=== PATIENT | male | born 1980 | race Caucasian/White ===

== ENCOUNTER 2025-10-01 16:04 | Outpatient (AMB) | payer OTHER, SELFPAY ==
--- NOTE | 2025-10-01 16:07 | A.OFFPC_ITS ---
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 up Sales And Service Officer Required: No Accompanied by: Self / Same As Patient Allergies No Known Allergies Allergy (Verified 10/01/25 16:10) Medication List - Last Reconciled 10/01/25 by Remi Disla MD No Known Home Meds Tobacco use date assessed: 10/01/25 Dental Screening Dental Screen Date: 10/01/25 Did you have a dental visit in the last 12 months?: No Did you have a dental problem in the last 6 months where you did not have access to dental care?: No Was dental information given to patient?: No HPI HPI Comments History of Present Illness Details History of Present Illness The patient is a 44 year old individual presenting with chest pain. Positional chest pain: The patient has been experiencing chest pain for a couple of months, which occurs when rising after bending over. The pain is not present with palpation and has not been treated with any medication. Morbid Obesity: The patient is categorized as having morbid obesity with a BMI of 40 or above. The patient currently does not exercise. Obstructive sleep apnea: The patient was diagnosed with sleep apnea and has been using a CPAP machine every night for 6 hours for the past 3 years. The CPAP settings have not been evaluated in two years. History of Hypercholesterolemia: The patient has a history of high cholesterol and previously took medication, which was stopped after cholesterol levels returned to normal. Surgical History: - No history of surgeries. Medications: - The patient is not currently taking an y medications. - The patient previously took medication for high cholesterol but discontinued it after levels normalized. 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 - Substance use: The patient denies smok ing or using illicit drugs. - Exercise: The patient reports not exer cising. Family History: - The patient reports that an older brot her was recently diagnosed with a thyroid problem. Past Medical History - Hypercholesterolemia, previously treat ed with medication. - Obstructive sleep apnea for three year s, managed with a CPAP machine. - No other known medical history. - No prior hospitalizations. - Last saw a doctor and had blood work p erformed approximately seven years ago. Health Maintenance - As the patient has not had a health ev aluation in seven years, comprehensive screening labs have been ordered. - An influenza vaccine was offered. - The patient was provided instructions for completing lab work. [facility] Medical History (Updated 10/01/25 @ 16:33 by Remi Disla MD) Dyslipidemia Costochondral chest pain Morbid obesity due to excess calories Sleep apnea Social History (Updated 10/01/25 @ 16:13 by Bayron Kilgore CMA) Housing: Apartment Housing Other:: Rents a room Alcohol intake: current Comment: ocasionally Patient Tobacco Use Status: Former Tobacco user Years Smoked: 15 years e-Cigarette/Vaping Use: Never Used Second Hand Smoke Exposure: No Use of substances other than those prescribed or required for medical reasons: No service: No Current occupational status: employed 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 1. Little interest or pleasure in doing things: not at all 2. Feeling down, depressed, or hopeless: not at all 3. Trouble falling or staying asleep, or sleeping too much: not at all 4. Feeling tired or having little energy: more than half the days 5. Poor appetite or overeating: not at all 6. Feeling bad about yourself - or that you are a failure or have let yourself or your family down: not at all 7. Trouble concentrating on things, such as reading the newspaper or watching television: not at all 8. Moving or speaking so slowly that other people could have noticed. Or the opposite - being so fidgety or restless that you have been moving around a lot more than usual: not at all 9. Thoughts that you would be better off or of hurting yourself in some way: not at all Total score: 2 Depression Screening Interpretation: Negative Depression Screening Done: Yes Source: Developed by Drs. Reese Guidry, Ivory Cole, George Whitehead and colleagues, with an educational alvino from [employer]. Thrive Questionnaire I am a: Patient What is your living situation today?: I choose not to answer this question Within the past 12 months, did the food you bought not last and you didn't have the money to get more?: Never true Within the past 12 months, did you worry whether your food would run out before you got money to buy more?: Never true Do you have trouble paying for medicines?: No Do you have trouble getting transportation to medical appointments?: No Do you have trouble paying your heating and electricity bill?: No Do you have trouble taking care of your child, family member or friend?: No Are you currently unemployed and looking for a job?: No Are you interested in more education?: No Please select the resources that you would like help with: None Currently or been in a relationship where the following occur: I choose not to answer THRIVE Score: 0 AUDIT C Alcohol Use Questionnaire (AUDIT-C) 1. How often do you have a drink containing alcohol?: 2-3 times a week 2. How many drinks containing alcohol do you have on a typical day when you are drinking?: 3 or 4 3. How often do you have six or more drinks on one occasion?: Weekly Total Score: 7 AMISH-7 AMB Questionnaire AMISH-7 Feeling nervous, anxious, or on edge: 0 = Not at all Not being able to stop or control worryin = Not at all Worrying too much about different things: 0 = Not at all Trouble relaxin = Not at all Being so restless that it is hard to sit still: 0 = Not at all Becoming easily annoyed or irritable: 0 = Not at all Feeling afraid as if something awful might happen: 0 = Not at all Total AMISH-7 score (0-4 normal; 5-9 mild; 10-14 moderate; 15-21 severe): 0 Source: Developed by Drs. Reese Guidry, Ivory Cole, George Whitehead and colleagues, with an educational alvino from [employer]. Review of Systems Narrative Review of Systems - Cardiovascular: Reports intermittent, positional chest pain for a couple of months. - Gastrointestinal: Reports normal bowel function. - Genitourinary: Reports normal urinary function. - Respiratory: Reports sleep apnea. - General: Patient believes being overweight contributes to symptoms. 10-point ROS reviewed and negative except as noted in HPI Physical exam (Primary Care) Vital Signs: Last Vital Signs Temp 98.3 F 10/01/25 16:14 Pulse 92 10/01/25 16:14 Resp 20 10/01/25 16:14 BP 110/78 10/01/25 16:14 Pulse Ox 97 10/01/25 16:14 Oxygen Delivery Method Room Air 10/01/25 16:14 BMI result Body Mass Index 41.3 Tobacco/Smoking Status: Tobacco use Status Tobacco use date assessed 10/01/25 10/01/25 16:14 Patient Tobacco Use Status Former Tobacco user 10/01/25 16:14 e-Cigarette/Vaping Use Never Used 10/01/25 16:14 PHQ-9: PHQ-9 Score PHQ-9: Total score 2 10/01/25 16:14 Depression Screening Interpretation: Negative Currently or been in a relationship where the following occur: I choose not to answer Narrative Physical Exam General: Well-appearing, in no acute distress. Vital signs: Within normal limits. Blood pressure and pulse are good. HEENT: Normocephalic, atraumatic. PERRLA, EOMI. Conjunctiva clear, sclera anicteric. Oropharynx clear, mucous membranes moist. TMs intact bilaterally. Noted redness, possibly from rubbing or pressure. Neck: Supple, no lymphadenopathy, no thyromegaly, no JVD or carotid bruits. Cardiovascular: RRR, normal S1/S2, no murmurs, rubs, or gallops. Peripheral pulses 2+ and symmetric. No edema. Heart sounds good. Respiratory: Lungs clear to auscultation bilaterally, no wheezes, rales, or rhonchi. Normal effort. Abdomen: Soft, non-tender, non-distended. Normoactive bowel sounds. No hepatosplenomegaly, no masses. MSK: Full range of motion, no joint swelling or deformity. Normal gait. Pain noted upon bending and stretching, suggestive of musculoskeletal origin, possibly costochondritis. Skin: Warm, dry, intact. No rashes, lesions, or pallor. Noted redness, possibly from rubbing or pressure. Neuro: Alert and oriented x3. Cranial nerves II-XII intact. Strength 5/5 throughout. Sensation intact. Reflexes 2+ symmetric. Normal coordination and gait. Psych: Appropriate mood and affect. Normal judgment and insight. Coding Level of Care Code New Pt Level 4 (09232) Diagnoses Sleep apnea G47.30 Morbid obesity due to excess calories E66.01 Costochondral chest pain R07.89 Dyslipidemia E78.5 Assessment & Plan Assessment & Plan (1) Sleep apnea: Code(s): G47.30 - Sleep apnea, unspecified Category: Medical (2) Morbid obesity due to excess calories: Code(s): E66.01 - Morbid (severe) obesity due to excess calories Category: Medical (3) Costochondral chest pain: Code(s): R07.89 - Other chest pain Category: Medical (4) Dyslipidemia: Code(s): E78.5 - Hyperlipidemia, unspecified Category: Medical Plan Consent The patient was informed of the plan to order comprehensive blood work, place a referral to sleep medicine, and prescribe ibuprofen. The patient verbally agreed to the proposed plan. Patient was informed and verbally consented to the use of an ambient scribe for clinic note documentation during this visit. Plan 1. Positional Chest Pain - The patient's chest pain, which is positional and reproducible with movement, is assessed to be musculoskeletal in origin, likely costochondritis. - Coronary artery disease is considered less likely at this time. - Recommended ibuprofen 600 mg for pain. - Advised the patient to go to the emergency room if the chest pain is accompanied by shortness of breath or dizziness. 2. Morbid Obesity - The patient's BMI is in the morbid obesity range (40 or above), which increases future cardiovascular risk. - A comprehensive lab evaluation, including lipids and hemoglobin A1c, has been ordered to assess for related metabolic conditions. - A referral to a welder fabricator will be considered to work on weight loss after reviewing lab results. 3. Obstructive Sleep Apnea - The patient uses a CPAP but has not had the settings checked in two years. - A referral will be placed for the patient to see a sleep medicine specialist to evaluate and adjust CPAP settings as needed. Discussion Notes I explained to the patient that the chest pain is likely musculoskeletal in nature, such as costochondritis, because it is related to movement and position, and that a cardiac cause is less likely at this time. I recommended ibuprofen for pain and provided strict instructions to seek emergency care for any wo rsening symptoms like shortness of breath or dizziness. I discussed the patient's weight, classifying it as morbid obesity based on the body mass index, and explained that this is a significant risk factor for future cardiovascular disease. I outlined the plan to order a comprehensive set of labs to get a full picture of the patient's overall health before addressing weight management, which may include a referral to a welder fabricator. We also discussed the history of sleep apnea, and I am placing a referral to sleep medicine to have the patient's CPAP settings evaluated, as this has not been done in two years. The patient understood the plan and agreed to proceed with the lab work and referrals. Patient Instructions - Take ibuprofen 600 mg for your chest pain as needed. - Go to the nearest emergency room if you experience chest pain along with shortness of breath, dizziness, or pain that travels down your arm. - Please go to the lab to have your blood and urine tests done. - You will receive a call from the sleep medicine department to schedule an appointment to check your CPAP machine settings. - You will receive a flu vaccine today before you leave. - We will discuss your test results at a follow-up visit and talk more about ways to improve your health, such as exercise. Medical Decision Making The patient is a 44-year-old individual presenting for evaluation of chest pain after not having seen a physician for seven years. My primary assessment of the chest pain is that it is musculoskeletal, likely costochondritis, given that it is positional and reproducible with specific movements, such as rising after bending. The patient's vital signs were stable, and a cardiac etiology seems less likely at this juncture, although it cannot be completely excluded without further workup. Management for the pain will be symptomatic with NSAIDs, and clear return precautions were provided. Given the long interval since the last health evaluation, and the patient's classification of morbid obesity (BMI >40), a comprehensive diagnostic workup is warranted to establish a baseline and screen for comorbidities. I have ordered a CBC, CMP, urinalysis, lipid panel, HbA1c, thyroid studies, and infectious disease screening to assess the patient's overall metabolic, endocrine, and hematologic status. Additionally, the patient has a known history of obstructive sleep apnea and has not had CPAP settings evaluated in two years, necessitating a referral to sleep medicine for optimization of therapy. The overall plan is to address the acute musculoskeletal pain, establish a comprehensive health baseline, and initiate long-term management strategies for chronic conditions like obesity and sleep apnea, with further subspecialty referrals as indicated by lab results. Total Time Statement 30 min Total time spent caring for the patient today includes pre-visit chart review, documentation, review of laboratory and diagnostic imaging results, medication reconciliation, medically necessary evaluation, counseling on diagnoses, care coordination, ordering appropriate tests and medications, review of tests performed by other providers, reporting test results to the patient, and communication with other healthcare providers. Orders: Orders Complete Blood Count Auto Diff Today Z13.9 - Encounter for screening, unspecified Hepatitis B Surface Antigen Today Z13.9 - Encounter for screening, unspecified Syphilis Screen Today Z13.9 - Encounter for screening, unspecified Comprehensive Met. Panel Today Z13.9 - Encounter for screening, unspecified Hepatitis C Antibody Today Z13.9 - Encounter for screening, unspecified HIV Ab/Ag Today Z13.9 - Encounter for screening, unspecified UA CC w/rflx Micro + Cult Today Z13.9 - Encounter for screening, unspecified Lipid Panel Today Z13.9 - Encounter for screening, unspecified Vitamin B12 and Folate Today Z13.9 - Encounter for screening, unspecified Hepatitis B Surface Antibody Today Z13.9 - Encounter for screening, unspecified Influenza [id number] Immunization Today Z13.9 - Encounter for screening, unspecified, Z23 - Encounter for immunization TSH reflex Free T4 Today Z13.9 - Encounter for screening, unspecified Hemoglobin A1c Today Z13.9 - Encounter for screening, unspecified Magnesium Today Z13.9 - Encounter for screening, unspecified Vitamin D 1,25 dihydroxy Today Z13.9 - Encounter for screening, unspecified Referrals Sleep Medicine Referral G47.30 - Sleep apnea, unspecified Medications: New Fluarix [id number] (PF) (flu vac ts 2024-(6mos up)-PF) 0.5 mL IM ONCE 0.5 mL 0RF NS Z13.9 - Encounter for screening, unspecified, Z23 - Encounter for immunization
[2025-10-01 16:14] VITALS: BP 110/78; PULSE 92; RESP 20; TEMP 36.8; O2SAT 97; BMI 41.3
--- OUTSIDE RECORDS SUMMARY | 2025-10-01 19:26 | XMS_ITS | Encounter Summary ---
Author Organization [facility] Address [address] [place] [phone] Phone Care Team Providers Care Survey Research Center Director Name Role Phone Pcp, Unknown Primary Care Provider Unavailabl e Encounter Details Date Type Department Care Team (Late st Contact Info) Description 11/12/2024 Procedure Pass [facility], Ct Scan - [facility] [address] [place] [address] Social History Tobacco Use Types Packs/Day Years Used Date Smoking Tobacco: Former Cigarettes Q uit: 2015 Smokeless Tobacco: Never Alcohol Use Standard Drinks/Week Comments Yes 0 (1 standard drink = 0.6 oz pur e alcohol) socially Education Answer Date Recorded Are you interested in more education? Not on alvaro e 11/12/2024 Are you concerned about learning? Not on file 11/12/2024 No 11/12/2024 No 11/12/2024 Digital Access Answer Date Recorded No 11/12/2024 No 11/12/2024 Reliable internet access at home? Not on file 11/12/2024 Device with a working camera? Not on file Intimate Partner Violence Answer Date R ecorded Are you denied basic needs s uch as food, clothing, or medical care? No 11/12/2024 In the past 12 months have y ou been in a relationship with a person who hurts, threatens, or tries to control you? No 11/12/2024 Are you denied basic needs s uch as food, clothing, or medical care? No 11/12/2024 In the past 12 months have y ou been in a relationship with a person who hurts, threatens, or tries to control you? No 11/12/2024 Sex and Gender Information Value Date Recorded Sex Assigned at Male 11/12/2024 1:58 PM EST Legal Sex Male 12:19 PM EST Gender Identity Male 11/12/2024 1:58 PM EST Sexual Orientation Don't know 11/12/2024 1: 58 PM EST documented as of this encounter Functional Status * Calculated C-SSRS Risk Score (Lifetime/Recent) Answer Date of Assessment Author No Risk Indicated 11/12/2024 12:47 PM Sujata Pathak, TATY * [place] Suicide Severity Rating Scale (Screener/Recent Self-Report) Question Answer Date of Assessment Author 1. Wish to be (Past 1 Month) No 025 12:47 PM Sujata Allred RN 2. Non-Specific Active Suici em Thoughts (Past 1 Month) No 11/12/2024 12:47 PM Lisette Allred RN 6. Suicidal Behavior (Lifetime) No 12:47 PM Sujata Allred, TATY documented as of this encounter Plan of Treatment Not on file documented as of this encounter Visit Diagnoses Not on filedocumented in this encounter Care Teams Survey Research Center Director Relationship Specialty Start Date End Date Pcp, Unknown PCP - General 11/12/24 documented as of this encounter Additional Source Comments The information contained in this document represents components of the legal health record. It is not the complete legal health record.[facility]
--- OUTSIDE RECORDS SUMMARY | 2025-10-01 19:26 | XMS_ITS | Encounter Summary ---
Author Organization [facility] Address [address] [facility] [address] [place] [phone] Phone Care Team Providers Care Emergency Vehicle Operations Instructor Name Role Phone Pcp, Unknown Primary Care Provider Unavailabl e Encounter Details Date Type Department Care Team (Late st Contact Info) Description 11/12/[address] [facility], Ct Scan - [facility] [address] [place] [address] Social History Tobacco Use Types Packs/Day Years [...] 11/12/2024 12:47 PM Sujata Pathak, TATY * [place] Suicide Severity Rating Scale (Screener/Recent Self-Report) Question [...] on filedocumented in this encounter Care Teams Emergency Vehicle Operations Instructor Relationship Specialty Start Date End Date Pcp, Unknown PCP - General 11/12/24 documented as of this encounter Additional Source Comments The information contained in this document represents components of the legal health record. It is not the complete legal health record.[facility]
--- OUTSIDE RECORDS SUMMARY | 2025-10-01 19:26 | XMS_ITS | Clinical Summary ---
Author Organization [facility] Address [address] [place] [phone] Phone Care Team Providers Care Activity Coordinator Name Role Phone Pcp, Unknown Primary Care Provider Unavailabl e Allergies No known active allergies Medications No known medications Active Problems Problem Noted Date Diagnosed Date No pertinent past medical history 11/12/2024 Social History Tobacco Use Types Packs/Day Years Used Date Smoking Tobacco: Former Cigarettes Q uit: 2015 Smokeless Tobacco: Never Tobacco Cessation:Counseling Given: Not Answered Alcohol Use Standard Drinks/Week Comments Yes 0 [...] Don't know 11/12/2024 1: 58 PM EST Last Filed Vital Signs Vital Sign Reading Time Taken Comments Blood Pressure 122/85 11/12/2024 12:36 PM EST Pulse 100 11/12/2024 12:36 PM EST Temperature 36.5 C (97.7 F) 11/12/2024 12:36 PM EST Respiratory Rate 18 11/12/2024 12:36 PM EST Oxygen Saturation 98% 11/12/2024 12:36 PM EST Inhaled Oxygen Concentration - - Weight 108.9 kg (240 lb) 11/12/2024 12:36 PM EST Height 165.1 cm (5' 5 ) 11/12/2024 12:36 PM EST Body Mass Index 39.94 11/12/2024 12:36 PM EST Plan of Treatment Health Maintenance Due Date Last Done Comments Adult Td,Tdap Booster 1981 LIPID PANEL 1981 DEPRESSION SCREENING 1993 SMOKING Hx and SMOKELESS TOB ACCO SCREENING 1994 HEPATITIS C SCREENING 1999 HIV ONE-TIME SCREENING (18-6 5 YEARS) 1999 INFLUENZA VACCINE (#1) 2025 COVID-19 VACCINE (2024-2 6 season) 2025 SCREENING FOR DIABETES 11/12/2027 11/12/2024 HEPATITIS A VACCINES Aged Out No long er eligible based on patient's age to complete this topic HIB VACCINES Aged Out No longer eligi ble based on patient's age to complete this topic MENINGOCOCCAL VACCINES (ACWY) Aged Out No longer eligible based on patient's age to complete this topic MENINGOCOCCAL VACCINES (B) Aged Out N o longer eligible based on patient's age to complete this topic PNEUMOCOCCAL VACCINES (0-49 years) Aged Out No longer eligible based on patient's age to complete this topic Medical Devices Not on file Insurance WORKERS COMPENSATION Care Teams Activity Coordinator Relationship Specialty Start Date End Date Pcp, Unknown PCP - General 11/12/24 Additional Source Comments The information contained in this document represents components of the legal health record. It is not the complete legal health record.[facility]
== END 2025-10-01 16:35 | disposition home or self-care (01) ==
LOC: HO.HMCFMS 16:05
PROVIDERS: PCP Student in an Organized Health Care Education/Training Program; Visit Provider Student in an Organized Health Care Education/Training Program
DX: G47.30 Sleep apnea, unspecified (principal); E66.01 Morbid (severe) obesity due to excess calories; R07.89 Other chest pain; E78.5 Hyperlipidemia, unspecified; Z23 Encounter for immunization; Z13.9 Encounter for screening, unspecified

== ENCOUNTER → 2025-10-01 16:04 | Outpatient (BNVA) | payer OTHER, SELFPAY | PROVIDERS: Visit Provider Student in an Organized Health Care Education/Training Program | DX: R07.89 Other chest pain (principal); Z23 Encounter for immunization; G47.30 Sleep apnea, unspecified; E66.01 Morbid (severe) obesity due to excess calories; Z68.41 Body mass index [BMI] 40.0-44.9, adult; Z13.31 Encounter for screening for depression | CPT/HCPCS: 90471; 90656; 96127 ==

== ENCOUNTER 2025-10-02 10:10 | Outpatient (REF) | payer OTHER, SELFPAY ==
--- OUTSIDE RECORDS SUMMARY | 2025-10-02 11:57 | XMS_ITS | Clinical Summary ---
Author Organization [facility] Address [address] [facility] [address] [place] [phone] Phone Care Team Providers Care Bi Specialist Name Role Phone Pcp, Unknown Primary Care [...] on file Insurance WORKERS COMPENSATION Care Teams Bi Specialist Relationship Specialty Start Date End Date Pcp, Unknown PCP - General 11/12/24 Additional Source Comments The information contained in this document represents components of the legal health record. It is not the complete legal health record.[facility]
--- OUTSIDE RECORDS SUMMARY | 2025-10-02 11:57 | XMS_ITS | Encounter Summary ---
Author Organization [facility] Address [address] [facility] [address] [place] [phone] Phone Care Team Providers Care Electrician Master Name Role Phone Pcp, Unknown Primary Care Provider Unavailabl e Encounter Details Date Type Department Care Team (Late st Contact Info) Description 11/12/2024 Procedure Pass [facility], Ct Scan - [facility] [address] [place] [address] Social History Tobacco Use Types Packs/Day Years [...] 11/12/2024 12:47 PM Sujata Pathak, TATY * [place] Suicide Severity Rating Scale (Screener/Recent Self-Report) Question [...] on filedocumented in this encounter Care Teams Electrician Master Relationship Specialty Start Date End Date Pcp, Unknown PCP - General 11/12/24 documented as of this encounter Additional Source Comments The information contained in this document represents components of the legal health record. It is not the complete legal health record.[facility]
--- OUTSIDE RECORDS SUMMARY | 2025-10-02 11:57 | XMS_ITS | Encounter Summary ---
Author Organization [facility] Address [address] [facility] [address] [place] [phone] Phone Care Team Providers Care Networks Software Consultant Name Role Phone Pcp, Unknown Primary Care Provider Unavailabl e Encounter Details Date Type Department Care Team (Late st Contact Info) Description 11/12/2024 Procedure Pass [facility], Ct Scan - [facility] [address] [place] [address] Social History Tobacco Use Types Packs/Day Years [...] 11/12/2024 12:47 PM Sujata Pathak, TATY * [place] Suicide Severity Rating Scale (Screener/Recent Self-Report) Question [...] on filedocumented in this encounter Care Teams Networks Software Consultant Relationship Specialty Start Date End Date Pcp, Unknown PCP - General 11/12/24 documented as of this encounter Additional Source Comments The information contained in this document represents components of the legal health record. It is not the complete legal health record.[facility]
[2025-10-02 13:23] LABS: MANUAL DIFF FLAG NO
[2025-10-02 13:34] LABS: Hematocrit 42.1 % (42.0-52.0); Hemoglobin 13.6 g/dl (14.0-18.0); Imm Gran Abs Auto 0.02 X10*3/uL (0.00-0.03); Imm Gran Pct Auto 0.4 % (0.0-0.4); Lymphocytes Absolute Auto 1.1 X10*3/uL (1.2-4.9); Mean Corpuscular HGB Conc 32.3 g/dl (31.0-36.0); Mean Corpuscular Hemoglobin 26.7 pg (27.0-33.0); Mean Corpuscular Volume 82.5 fL (80.0-98.0); NRBC Abs Auto 0.000 X10*3/uL (0.0-0.012); NRBC Pct Auto 0.0 /100WBC (0.0-0.2); Platelet Count 372 X10*3/uL (160-400); Red Blood Count 5.10 X10*6/uL (4.60-5.80); White Blood Count 5.5 X10*3/uL (4.8-10.8)
[2025-10-02 14:01] LABS: Appearance Urine Clear; Glucose Urine UA Negative (Negative); PH 7.5 (5.0-9.0); Specific Gravity - Urine 1.025 (1.005-1.025); UMIC TRIGGER UACC YES
[2025-10-02 15:12] LABS: Alanine Aminotransferase 38 U/L (0-40); Albumin Level 4.6 g/dL (3.5-5.0); Alkaline Phosphatase 104 U/L (39-117); Anion Gap 12 (12-20); Aspartate Amino Transferase 41 U/L (5-37); Blood Urea Nitrogen 17 mg/dL (9-16); Calcium 9.9 mg/dL (8.4-10.2); Carbon Dioxide 29 mmol/L (22-29); Chloride 104 mmol/L (96-108); Cholesterol 217 mg/dL (<200); Estimated Glomerular Filt Rate > 60; HDL Cholesterol 46 mg/dL (>40); Magnesium 2.2 mg/dL (1.6-2.6); Potassium 4.2 mmol/L (3.3-5.1); Sodium 141 mmol/L (135-145); Total Protein 7.8 g/dL (6.5-8.0); Triglycerides 277 mg/dL (<150)
[2025-10-02 19:02] LABS: Folate 15.8 ng/mL (> or = 4.0); Vitamin B12 238 pg/mL (200-900)
[2025-10-03 04:44] LABS: Syphilis Screen Nonreactive (Nonreactive)
[2025-10-03 05:38] LABS: HBS Num1 > 1000.00 mIU/mL (0-7.99); HBsAGNum1 0.31 S/CO (0.00-0.99); HIV Num 1 0.06 S/CO (0.00-0.99); Hepatitis B Surface Antigen Negative (Negative); ~HepC Num1 0.15 S/CO (0.00-0.79); ~Hepatitis B Surface Antibody REACTIVE (Nonreactive); ~Hepatitis C Antibody Nonreactive (Nonreactive)
[2025-10-07 14:54] LABS: VITAMIN D (1,25 OH) D3 23 pg/mL; Vit D (1,25-Dihydroxy) Total 23 pg/mL (18-72); Vitamin D (1,25 OH) D2 <8 pg/mL
== END 2025-10-02 10:11 | disposition home or self-care (01) ==
LOC: HO.HKASLDS 10:10
PROVIDERS: PCP Student in an Organized Health Care Education/Training Program; Visit Provider Student in an Organized Health Care Education/Training Program
DX: Z11.4 Encounter for screening for human immunodeficiency virus [HIV] (principal); Z13.6 Encounter for screening for cardiovascular disorders; Z13.1 Encounter for screening for diabetes mellitus; Z13.29 Encounter for screening for other suspected endocrine disorder; Z13.89 Encounter for screening for other disorder
CPT/HCPCS: 36415; 80053; 80061; 81001; 81003; 82607; 82652; 82746; 83036; 83735; 84443; 85025; 86706; 86780; 86803; 87340; 87389

== ENCOUNTER 2025-10-17 15:53 | Outpatient (AMB) | payer OTHER, SELFPAY ==
[2025-10-17 15:59] VITALS: BP 137/78; PULSE 67; RESP 16; TEMP 36.7; O2SAT 97; BMI 41.4
--- NOTE | 2025-10-17 15:59 | A.OFFPC_ITS ---
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[employer] Developer Required: No Accompanied by: Self / Same As Patient Allergies No Known Allergies Allergy (Verified 10/17/25 16:00) Medication List - Last Reconciled 10/18/25 by Remi Disla MD cyanocobalamin (vitamin B-12) 1,000 mcg PO DAILY Tobacco use date assessed: 10/17/25 Dental Screening Dental Screen Date: 10/17/25 Did you have a dental visit in the last 12 months?: No Did you have a dental problem in the last 6 months where you did not have access to dental care?: No Was dental information given to patient?: No HPI HPI Comments History of Present Illness Details History of Present Illness The patient is a 44 year old male presenting for a review of his lab results. Prediabetes: The patient's hemoglobin A1c is 5.8%, placing him in the prediabetic range of 5.7% to 6.4%. His random glucose was 86 mg/dL. His diet is high in carbohydrates, including pastas, rices, breads, cookies, powdered juice, and he consumes bread daily with breakfast. Hyperlipidemia: The patient's lab results were from a non-fasting sample. His triglycerides are elevated at 277 mg/dL (target <150 mg/dL), and total cholesterol is 217 mg/dL (target <200 mg/dL). The patient's LDL cholesterol is 116 mg/dL (target <100 mg/dL) and his HDL cholesterol is 46 mg/dL (target >40 mg/dL). He reports drinking a lot of juice. Vitamin B12 Deficiency: The patient's vitamin B12 level is 238 pg/mL, which is at the low end of the normal range of 200-900 pg/mL. He reports experiencing fatigue, particularly around 2:00-3:00 PM after getting home from work, which he attributes to waking up early. He denies symptoms of anemia such as dizziness or heart racing on standing. Sleep evaluation: The patient has a scheduled appointment for a sleep study on the . Social History: - Nutrition: The patient reports a diet high in carbohydrates such as pastas, rices, and breads. - He consumes bread every morning for br eakfast and drinks a lot of powdered juice. - Exercise: He does not currently have a regular exercise routine. - Substance Use: He denies alcohol consu mption. Diagnostic Results: - CBC: White blood cells and red blood c ells are normal. - Hemoglobin: 13.6 g/dL (normal >14 g/dL ). - Electrolytes: Sodium, potassium, and c hloride are normal. - Renal function: Normal. - Random Glucose: 86 mg/dL. - Hemoglobin A1c: 5.8%. - Liver function tests: Normal. - Lipid Panel (non-fasting): Total benjamin sterol 217 mg/dL, Triglycerides 277 mg/dL, LDL 116 mg/dL, HDL 46 mg/dL. - Vitamin B12: 238 pg/mL. - Folate: Normal. - Thyroid function tests: Normal. - Urinalysis: Normal. - Infectious Disease Screen: Negative fo r syphilis, hepatitis C, and HIV. - Hepatitis B Surface Antibody: Reactive , consistent with prior vaccination. Past Medical History - History of hepatitis B vaccination. Health Maintenance - Recommended dietary changes to manage prediabetes and hyperlipidemia, including reducing intake of carbohydrates like pasta, rice, bread, and sugary drinks. - A referral will be placed for a sergio luis dietitian to provide dietary counseling. - Advised to begin moderate-intensity ex ercise, such as walking, for 30 minutes a day, aiming for 150 minutes per week. - Recommended to repeat labs in [facility] to monitor hemoglobin. - Received screening for syphilis, hepat itis B, hepatitis C, and HIV, with all results negative. - Patient has a scheduled appointment fo r a sleep study. 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 1. Little interest or pleasure in doing things: not at all 2. Feeling down, depressed, or hopeless: not at all 3. Trouble falling or staying asleep, or sleeping too much: not at all 4. Feeling tired or having little energy: more than half the days 5. Poor appetite or overeating: not at all 6. Feeling bad about yourself - or that you are a failure or have let yourself or your family down: not at all 7. Trouble concentrating on things, such as reading the newspaper or watching television: not at all 8. Moving or speaking so slowly that other people could have noticed. Or the opposite - being so fidgety or restless that you have been moving around a lot more than usual: not at all 9. Thoughts that you would be better off or of hurting yourself in some way: not at all Total score: 2 Depression Screening Interpretation: Negative Depression Screening Done: Yes Source: Developed by Drs. Reese Guidry, Ivory Cole, George Whitehead and colleagues, with an educational alvino from [employer]. Thrive Questionnaire Date Thrive assessed: 10/17/25 I am a: Patient What is your living situation today?: I choose not to answer this question Within the past 12 months, did the food you bought not last and you didn't have the money to get more?: Never true Within the past 12 months, did you worry whether your food would run out before you got money to buy more?: Never true Do you have trouble paying for medicines?: No Do you have trouble getting transportation to medical appointments?: No Do you have trouble paying your heating and electricity bill?: No Do you have trouble taking care of your child, family member or friend?: No Do you have trouble with day-to-day activities such as bathing, preparing meals, shopping, managing finances, etc.?: No Are you currently unemployed and looking for a job?: No Are you interested in more education?: No Please select the resources that you would like help with: None Currently or been in a relationship where the following occur: I choose not to answer THRIVE Score: 0 AUDIT C Alcohol Use Questionnaire (AUDIT-C) 1. How often do you have a drink containing alcohol?: 2-3 times a week 2. How many drinks containing alcohol do you have on a typical day when you are drinking?: 3 or 4 3. How often do you have six or more drinks on one occasion?: Weekly Total Score: 7 AMISH-7 AMB Questionnaire AMISH-7 Date AMISH - 7 assessed: 10/17/25 Feeling nervous, anxious, or on edge: 0 = Not at all Not being able to stop or control worryin = Not at all Worrying too much about different things: 0 = Not at all Trouble relaxin = Not at all Being so restless that it is hard to sit still: 0 = Not at all Becoming easily annoyed or irritable: 0 = Not at all Feeling afraid as if something awful might happen: 0 = Not at all Total AMISH-7 score (0-4 normal; 5-9 mild; 10-14 moderate; 15-21 severe): 0 Source: Developed by Drs. Reese Guidry, Ivory Cole, George Whitehead and colleagues, with an educational alvino from [employer]. Review of Systems Narrative Review of Systems - General: Reports fatigue, especially mid-afternoon. - Cardiovascular: Denies heart racing or palpitations. - Neurological: Denies dizziness. - Constitutional: Denies symptoms of anemia. 10-point ROS reviewed and negative except as noted in HPI Physical exam (Primary Care) Vital Signs: Last Vital Signs Temp 98.1 F 10/17/25 15:59 Pulse 67 10/17/25 15:59 Resp 16 10/17/25 15:59 BP 137/78 10/17/25 15:59 Pulse Ox 97 10/17/25 15:59 Oxygen Delivery Method Room Air 10/17/25 15:59 BMI result Body Mass Index 41.4 Tobacco/Smoking Status: Tobacco use Status Tobacco use date assessed 10/17/25 10/17/25 16:01 Patient Tobacco Use Status Former Tobacco user 10/17/25 16:01 e-Cigarette/Vaping Use Never Used 10/17/25 16:01 PHQ-9: PHQ-9 Score PHQ-9: Total score 2 10/18/25 10:26 Depression Screening Interpretation: Negative Thrive Assessment: Date of Thrive Assessment Date Thrive assessed 10/17/25 10/17/25 16:01 Currently or been in a relationship where the following occur: I choose not to answer Narrative Physical Exam General: Well-appearing, in no acute distress. Vital signs: Within normal limits. HEENT: Normocephalic, atraumatic. PERRLA, EOMI. Conjunctiva clear, sclera anicteric. Oropharynx clear, mucous membranes moist. TMs intact bilaterally. Neck: Supple, no lymphadenopathy, no thyromegaly, no JVD or carotid bruits. Cardiovascular: RRR, normal S1/S2, no murmurs, rubs, or gallops. Peripheral pulses 2+ and symmetric. No edema. Respiratory: Lungs clear to auscultation bilaterally, no wheezes, rales, or rh onchi. Normal effort. Abdomen: Soft, non-tender, non-distended. Normoactive bowel sounds. No hepatosplenomegaly, no masses. MSK: Full range of motion, no joint swelling or deformity. Normal gait. Skin: Warm, dry, intact. No rashes, lesions, or pallor. Neuro: Alert and oriented x3. Cranial nerves II-XII intact. Strength 5/5 throughout. Sensation intact. Reflexes 2+ symmetric. Normal coordination and gait. Psych: Appropriate mood and affect. Normal judgment and insight. Coding Level of Care Code Est Pt Level 3 (14067) Add On Problem Visit Only Diagnoses Prediabetes R73.03 Dyslipidemia E78.5 Low vitamin B12 level R79.89 Sleep apnea G47.30 Assessment & Plan Assessment & Plan (1) Prediabetes: Code(s): R73.03 - Prediabetes Category: Medical (2) Dyslipidemia: Code(s): E78.5 - Hyperlipidemia, unspecified Category: Medical (3) Low vitamin B12 level: Code(s): R79.89 - Other specified abnormal findings of blood chemistry Category: Medical (4) Sleep apnea: Code(s): G47.30 - Sleep apnea, unspecified Category: Medical Plan Consent Patient was informed and verbally consented to the use of an ambient scribe for clinic note documentation during this visit. Plan 1. Prediabetes - Patient's hemoglobin A1c of 5.8% falls within the prediabetic range, which correlates with his elevated triglycerides. - Advised lifestyle modifications with a focus on diet, specifically reducing carbohydrates such as pastas, rices, breads, and sugary items. - A referral will be placed for a registered dietitian to provide education on dietary management. - Encouraged to start incorporating 30 minutes of moderate-intensity exercise daily, aiming for 150 minutes per week. 2. Hypertriglyceridemia - Triglycerides are elevated at 277 mg/dL on a non-fasting test. - This is the main lipid abnormality of concern, as it can increase the risk for pancreatitis. - Advised patient to reduce intake of sugary drinks, like powdered juice, and high-carbohydrate foods, which contribute to high triglycerides. 3. Vitamin B12 Deficiency - The patient's vitamin B12 level is low at 238 pg/mL, which may be contributing to his reported fatigue. - He does not exhibit symptoms of anemia. - A prescription for vitamin B12 supplementation will be sent to his pharmacy to help replenish his levels and alleviate fatigue. 4. Mild Anemia - Hemoglobin is 13.6 g/dL, which is slightly below the cutoff of 14 g/dL. - The patient is asymptomatic, denying fatigue, dizziness, or palpitations. - Plan to repeat labs in six months to monitor the trend. 5. Hypercholesterolemia - Total cholesterol is 217 mg/dL and bad cholesterol (LDL) is 116 mg/dL, which are slightly elevated, though the sample was non-fasting. - Good cholesterol (HDL) is 46 mg/dL, which is adequate but could be higher. - Management will focus on the same dietary and exercise modifications recommended for prediabetes and hypertriglyceridemia. Discussion Notes I reviewed the patient's recent lab results with him. I explained that his hemoglobin A1c of 5.8% places him in the prediabetic range and that this serves as a warning to adjust his lifestyle to prevent progression to diabetes. I discussed that his high triglyceride level of 277 mg/dL, while not a direct cardiovascular risk factor, can cause pancreatitis. I explained that a diet high in carbohydrates and sugars from items like bread and juice is converted into triglycerides and fat by the body. We discussed that his cholesterol levels were slightly elevated but were taken from a non-fasting sample. I also explained the roles of good (HDL) and bad (LDL) cholesterol and the benefit of having a higher HDL level. I informed him that his Vitamin B12 level is on the low side and that supplementation may help with his afternoon fatigue. Regarding infectious disease screening, I clarified that a reactive hepatitis B surface antibody result indicates immunity from vaccination, not an active infection, and that all other tests were negative. We agreed on a plan to address these findings through lifestyle changes. I am placing a referral for a registered dietitian to provide dietary counseling, prescribing vitamin B12, and recommending he begin a moderate-intensity exercise regimen. I encouraged him to start with small, gradual changes to his diet and exercise habits rather than attempting a drastic overhaul, suggesting he could start making changes in November. We confirmed he has an upcoming appointment for a sleep study. Patient Instructions - Start taking the Vitamin B12 supplement that has been sent to your pharmacy. This may help with your feelings of tiredness. - Reduce your intake of high-carbohydrate foods like pasta, rice, and bread, as well as sugary items like cookies and juice. - Wait for a call from a registered dietitian who will help you with a diet plan. - Begin exercising for 30 minutes a day, aiming for a total of 150 minutes per week. You can start with walking at a pace where you can still hold a conversation. - Make gradual changes to your diet and exercise habits, perhaps starting in November. - Your slightly low hemoglobin will be rechecked with labs in six months. - Keep your scheduled appointment for the sleep study. Medical Decision Making The patient is a 44-year-old male who presented for a review of his lab results. The narayanan findings include a hemoglobin A1c of 5.8%, placing him in the prediabetic range, and significantly elevated triglycerides at 277 mg/dL on a non-fasting sample. These findings are consistent with a diet high in carbohydrates and sugary drinks, as reported by the patient. While his total and LDL cholesterol are slightly elevated, the non-fasting status of the test is taken into account; however, the hypertriglyceridemia warrants intervention to reduce the risk of pancreatitis. Additionally, his vitamin B12 level is borderline low at 238 pg/mL, which may be contributing to his complaint of afternoon fatigue. His hemoglobin is borderline low at 13.6 g/dL, but he is asymptomatic, so watchful waiting with a repeat lab in six months is appropriate. The management plan focuses on lifestyle modifications as the primary intervention. A referral to a registered dietitian is crucial for patient education and support in dietary changes. Initiating a regular, moderate-intensity exercise regimen is recommended to improve glycemic control and lipid profile. Vitamin B12 supplementation is being prescribed to address the deficiency and potentially alleviate his fatigue. Total Time Statement 20 min Total time spent caring for the patient today includes pre-visit chart review, documentation, review of laboratory and diagnostic imaging results, medication reconciliation, medically necessary evaluation, counseling on diagnoses, care coordination, ordering appropriate tests and medications, review of tests performed by other providers, reporting test results to the patient, and commu nication with other healthcare providers. Orders: Referrals Nurse Navigator Referral E78.5 - Hyperlipidemia, unspecified, R73.03 - Prediabetes Medications: New cyanocobalamin (vitamin B-12) 1,000 mcg PO DAILY 90 tabs 0RF
== END 2025-10-17 16:32 | disposition home or self-care (01) ==
LOC: HO.HMCFMS 15:53
PROVIDERS: Visit Provider Student in an Organized Health Care Education/Training Program
DX: R73.03 Prediabetes (principal); E78.5 Hyperlipidemia, unspecified; R79.89 Other specified abnormal findings of blood chemistry; G47.30 Sleep apnea, unspecified